=== PATIENT | female | born 2000 | race American Indian/Alaskan Native ===

== ENCOUNTER 2019-01-07 19:59 | Emergency (ER) | payer MEDICAID ==
--- NOTE | 2019-01-07 21:20 | EDM.PDOC ---
ED HPI GENERAL MEDICAL PROBLEM - General Chief Complaint: Gastrointestinal Problem Stated Complaint: THROWING UP Time Seen by Provider: 01/07/19 21:18 Source of Information: Reports: Patient History Limitations: Reports: No Limitations - History of Present Illness INITIAL COMMENTS - FREE TEXT/NARRATIVE: pt started vomiting about 4pm. She vomited violently about 10 times. She has not vomited for the past 25 minutes. Onset: Today, Sudden Duration: Hour(s): Location: Reports: Abdomen Associated Symptoms: Reports: Nausea/Vomiting, Weakness left lower abd Pain Score (Numeric/FACES): 7 - Related Data Allergies Allergy/AdvReac Type Severity Reaction Status Date / Time No Known Allergies Allergy Verified 01/07/19 21:14 Home Meds: Home Meds NK [No Known Home Meds] 01/07/19 [History] ED ROS GENERAL - Review of Systems Review Of Systems: See Below Constitutional: Reports: No Symptoms HEENT: Reports: No Symptoms Respiratory: Reports: No Symptoms Cardiovascular: Reports: No Symptoms Endocrine: Reports: No Symptoms GI/Abdominal: Reports: Abdominal Pain, Nausea, Vomiting, Other (pt has pain in the left lower abdoman. ) : Reports: No Symptoms Musculoskeletal: Reports: No Symptoms Skin: Reports: No Symptoms ED EXAM, GI/ABD - Physical Exam Exam: See Below Text/Narrative:: Pt arrived with pain in her left lower abdoman. She has vomited violently about 10 times prior to arrival. She has irregular periods. Her preg test has been neg at home. Exam Limited By: No Limitations General Appearance: Alert, Mild Distress Ears: Normal TMs Nose: Normal Inspection Throat/Mouth: Normal Inspection Head: Atraumatic Neck: Normal Inspection Respiratory/Chest: No Respiratory Distress Cardiovascular: Regular Rate, Rhythm GI/Abdominal Exam: Soft, Non-Tender (Female) Exam: Deferred Rectal (Female) Exam: Deferred Back Exam: Normal Inspection Extremities: Normal Inspection Neurological: Alert, Oriented, Normal Cognition Psychiatric: Anxious Course - Vital Signs Last Recorded V/S: Last Vital Signs Temp 35.9 C 01/07/19 21:16 Pulse 88 01/07/19 21:16 Resp 16 01/07/19 21:16 BP 152/96 H 01/07/19 21:16 Pulse Ox 97 01/07/19 21:16 - Orders/Labs/Meds Orders: Active Orders 24 hr Category Date Time Status CULTURE URINE [RM] Stat Lab 01/08/19 00:13 Ordered Labs: Laboratory Tests 01/07/19 01/07/19 01/07/19 Range/Units 21:29 21:29 21:41 WBC 12.0 H (4.5-11.0) K/uL RBC 5.02 (3.30-5.50) M/uL Hgb 13.1 (12.0-15.0) g/dL Hct 41.7 (36.0-48.0) % MCV 83 (80-98) fL MCH 26 L (27-31) pg MCHC 31 L (32-36) % Plt Count 281 (150-400) K/uL Neut % (Auto) 68 H (36-66) % Lymph % (Auto) 24 (24-44) % [place] % (Auto) 5 (2-6) % Eos % (Auto) 2 (2-4) % Baso % (Auto) 0 (0-1) % Sodium 141 (140-148) mmol/L Potassium 3.8 (3.6-5.2) mmol/L Chloride 106 (100-108) mmol/L Carbon Dioxide 26 (21-32) mmol/L Anion Gap 9.4 (5.0-14.0) mmol/L BUN 8 (7-18) mg/dL Creatinine 0.8 (0.6-1.0) mg/dL Est Cr Clr Drug Dosing 109.99 mL/min Estimated GFR (MDRD) > 60 (>60) Glucose 93 (74-106) mg/dL Calcium 9.0 (8.5-10.1) mg/dL Total Bilirubin 0.3 (0.2-1.0) mg/dL AST 28 (15-37) U/L ALT 28 (12-78) U/L Alkaline Phosphatase 156 H (46-116) U/L C-Reactive Protein 0.89 H (0.0-0.3) mg/dL Total Protein 7.7 (6.4-8.2) g/dL Albumin 3.6 (3.4-5.0) g/dL Globulin 4.1 H (2.3-3.5) g/dL Albumin/Globulin Ratio 0.9 L (1.2-2.2) Urine Color Urine Appearance Urine pH (4.5-8.0) Ur Specific [place] (1.008-1.030) Urine Protein (NEGATIVE) mg/dL Urine Glucose (UA) (NEGATIVE) mg/dL Urine Ketones (NEGATIVE) mg/dL Urine Occult Blood (NEGATIVE) Urine Nitrite (NEGATIVE) Urine Bilirubin (NEGATIVE) Urine Urobilinogen (NORMAL) mg/dL Ur Leukocyte Esterase (NEGATIVE) Urine RBC (0-5) Urine WBC (0-5) Ur Epithelial Cells Amorphous Sediment Urine Bacteria Urine Mucus Urine HCG, Qual 01/07/19 01/07/19 Range/Units 22:04 22:04 WBC (4.5-11.0) K/uL RBC (3.30-5.50) M/uL Hgb (12.0-15.0) g/dL Hct (36.0-48.0) % MCV (80-98) fL MCH (27-31) pg MCHC (32-36) % Plt Count (150-400) K/uL Neut % (Auto) (36-66) % Lymph % (Auto) (24-44) % [place] % (Auto) (2-6) % Eos % (Auto) (2-4) % Baso % (Auto) (0-1) % Sodium (140-148) mmol/L Potassium (3.6-5.2) mmol/L Chloride (100-108) mmol/L Carbon Dioxide (21-32) mmol/L Anion Gap (5.0-14.0) mmol/L BUN (7-18) mg/dL Creatinine (0.6-1.0) mg/dL Est Cr Clr Drug Dosing mL/min Estimated GFR (MDRD) (>60) Glucose (74-106) mg/dL Calcium (8.5-10.1) mg/dL Total Bilirubin (0.2-1.0) mg/dL AST (15-37) U/L ALT (12-78) U/L Alkaline Phosphatase (46-116) U/L C-Reactive Protein (0.0-0.3) mg/dL Total Protein (6.4-8.2) g/dL Albumin (3.4-5.0) g/dL Globulin (2.3-3.5) g/dL Albumin/Globulin Ratio (1.2-2.2) Urine Color [place] Urine Appearance Cloudy Urine pH 5.0 (4.5-8.0) Ur Specific [place] 1.020 (1.008-1.030) Urine Protein Trace (NEGATIVE) mg/dL Urine Glucose (UA) Normal (NEGATIVE) mg/dL Urine Ketones 15 H (NEGATIVE) mg/dL Urine Occult Blood Negative (NEGATIVE) Urine Nitrite Negative (NEGATIVE) Urine Bilirubin Small (NEGATIVE) Urine Urobilinogen 1 (NORMAL) mg/dL Ur Leukocyte Esterase Small (NEGATIVE) Urine RBC 5-10 H (0-5) Urine WBC 5-10 H (0-5) Ur Epithelial Cells Few Amorphous Sediment Few Urine Bacteria Few Urine Mucus Few Urine HCG, Qual Negative Meds: Medications Discontinued Medications Generic Name Dose Route Start Last Admin Trade Name Freq PRN Reason Stop Dose Admin Ketorolac Tromethamine 60 mg 01/07/19 23:20 01/07/19 23:54 Toradol IM 01/07/19 23:21 Not Given ONETIME ONE Ondansetron HCl 4 mg 01/07/19 21:33 01/07/19 21:56 Zofran Odt PO 01/07/19 21:34 4 mg ONETIME ONE Administration - Re-Assessments/Exams Free Text/Narrative Re-Assessment/Exam: 01/08/19 00:18 Pt had a wbc of 12,00. She stated that her pain was at a 8. She was given zoforan and she has not vomited since arrival. Her cat scan of the abdoman showed no stones present. There is an area in the liver that does need further evaluation. She does have some wbcs but very few bacteria. She has a culture set up. 01/08/19 00:23 Departure - Departure Time of Disposition: 00:24 Disposition: Home, Self-Care 01 Condition: Fair Clinical Impression: Viral illness - Discharge Information Referrals: PCP,None [Primary Care Provider] - Forms: ED Department Discharge Care Plan Goals: clear liquid diet, zoforan 4 mg q6h prn for nausea Pt does need a primary care person to follow her will refer to Dr Marin. -- A follow up Mri of the liver needs to be done. - My Orders Last 24 Hours: My Active Orders 01/08/19 00:13 CULTURE URINE [RM] Stat - Assessment/Plan Last 24 Hours: My Active Orders 01/08/19 00:13 CULTURE URINE [RM] Stat
[2019-01-07] MEDS ORDERED: Ondansetron 4 MG Tab.DIS PO ONE (21:33)
[2019-01-07] MEDS: Ketorolac 60 MG/2 ML SDV IM ONE ×2 (23:50→23:54)
--- NOTE | 2019-01-07 23:56 | CRLCT ---
INDICATION: Left lower abdominal pain TECHNIQUE: CT Abdomen and pelvis without i.v. contrast. Coronal and sagittal reformats were obtained. COMPARISON: None FINDINGS: Lower chest: Unremarkable. Liver: There is a hypodense mass in the left medial segment of the liver measuring 5.7 x 4.5 cm. Spleen: Unremarkable. Pancreas: Unremarkable. Gallbladder: Unremarkable. Kidney: Unremarkable. No kidney or ureteral stones or obstruction seen. Adrenal: Unremarkable. Bowel: Unremarkable. The appendix is normal in appearance and size. Vascular: Unremarkable. Lymph: Unremarkable. Peritoneum: Unremarkable. No pneumoperitoneum is seen. No significant ascites is noted. Pelvis: Unremarkable. Soft tissue: Unremarkable. Bone: Unremarkable for age. IMPRESSION: 1. There is a hypodense mass in the left medial segment of the liver measuring 5.7 x 4.5 cm. This may represent focal nodular hyperplasia or hepatic adenoma if the patient is on oral contraceptives. Assessment with outpatient liver MRI is recommended for confirmation, especially if the patient has a history of chronic liver disease or primary malignancy. Dictated by Per Liu MD @ 01/07/2019 11:52:52 PM Please note that all CT scans at this facility use dose modulation, iterative reconstruction, and/or weight-based dosing when appropriate to reduce radiation dose to as low as reasonably achievable. Dictated by: Per Liu MD @ 01/07/2019 23:53:30 (Electronically Signed)
== END 2019-01-08 00:40 | disposition home or self-care (01) ==
LOC: JP.ED 19:59
DX: B34.9 Viral infection, unspecified (principal)
CPT/HCPCS: 36415; 74176; 80053; 81001; 81025; 85025; 86140; 87086; 99284; A9270; J1885

== ENCOUNTER 2019-01-18 16:04 | Emergency (ER) | payer MEDICAID ==
--- NOTE | 2019-01-18 17:05 | EDM.PDOC ---
ED HPI GENERAL MEDICAL PROBLEM - General Chief Complaint: Abdominal Pain Time Seen by Provider: 01/18/19 16:41 Source of Information: Reports: Patient, Old Records, RN Notes Reviewed History Limitations: Reports: No Limitations - History of Present Illness INITIAL COMMENTS - FREE TEXT/NARRATIVE: 18-year-old female presents emergency department today to review her MRI results , she is been to the emergency department for ongoing abdominal pain initial CT scan workup in the ED showed questionable focal nodular hyperplasia she had an MRI done on 01-16 which then confirms that diagnosis she is here for those results Left Lower Abdomen Pain Score (Numeric/FACES): 7 - Related Data Allergies Allergy/AdvReac Type Severity Reaction Status Date / Time No Known Allergies Allergy Verified 01/18/19 16:31 Home Meds: Home Meds NK [No Known Home Meds] 01/07/19 [History] Past Medical History HEENT History: Reports: Impaired Vision Psychiatric History: Reports: Anxiety, Depression, PTSD, Suicide Attempt Social & Family History - Tobacco Use Smoking Status *Q: Current Every Day Smoker Years of Tobacco use: 1 Packs/Tins Daily: 0.2 Used Tobacco, but Quit: No Second Hand Smoke Exposure: Yes - Caffeine Use Caffeine Use: Reports: Energy Drinks - Alcohol Use Days Per Week of Alcohol Use: 0 - Recreational Drug Use Recreational Drug Use: No ED ROS GENERAL - Review of Systems Review Of Systems: See Below GI/Abdominal: Reports: Abdominal Pain ED EXAM, GI/ABD - Physical Exam Exam: See Below Exam Limited By: No Limitations General Appearance: Alert, WD/WN, No Apparent Distress Respiratory/Chest: No Respiratory Distress Course - Vital Signs Last Recorded V/S: Last Vital Signs Temp 96.8 F 01/18/19 16:38 Pulse 82 01/18/19 16:38 Resp 16 01/18/19 16:38 BP 137/87 01/18/19 16:38 Pulse Ox 97 01/18/19 16:38 Departure - Departure Time of Disposition: 17:05 Disposition: Home, Self-Care 01 Condition: Good 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
== END 2019-01-18 17:10 | disposition home or self-care (01) ==
LOC: JP.ED 16:04
DX: K76.89 Other specified diseases of liver (principal); F17.210 Nicotine dependence, cigarettes, uncomplicated
CPT/HCPCS: 99283

== ENCOUNTER 2019-06-14 21:05 | Emergency (ER) | payer MEDICAID ==
--- NOTE | 2019-06-14 23:13 | EDM.PDOC ---
ED HPI GENERAL MEDICAL PROBLEM - General Chief Complaint: Gastrointestinal Problem Stated Complaint: THROWING UP,STOMACH PAINS Time Seen by Provider: 06/14/19 22:13 Source of Information: Reports: Patient, Family (boyfriend and another friend in room) History Limitations: Reports: No Limitations - History of Present Illness INITIAL COMMENTS - FREE TEXT/NARRATIVE: chief complaint: request test This is a 18 year old female present to ER for test. reports her period is late and vomited once about 2 hours ago. No other complaints or concerns. Onset: Today Onset Date: 06/14/19 Onset Time: 20:00 Duration: Hour(s): (vomiting once this evening.) Severity: Mild Improves with: Reports: None Worsens with: Reports: None Associated Symptoms: Reports: No Other Symptoms - Related Data Allergies Allergy/AdvReac Type Severity Reaction Status Date / Time No Known Allergies Allergy Verified 01/18/19 17:11 Past Medical History HEENT History: Reports: Impaired Vision Psychiatric History: Reports: Anxiety, Depression, PTSD, Suicide Attempt Social & Family History - Family History Family Medical History: Unobtainable - Tobacco Use Smoking Status *Q: Current Every Day Smoker Years of Tobacco use: 5 Packs/Tins Daily: 0.1 Used Tobacco, but Quit: Yes Month/Year Tobacco Last Used: 05/2019 - Caffeine Use Caffeine Use: Reports: Soda Caffeine Use Comment: occasional soda use - Alcohol Use Days Per Week of Alcohol Use: 1 Number of Drinks Per Day: 5 Total Drinks Per Week: 5 - Recreational Drug Use Recreational Drug Use: Yes Recreational Drug Type: Reports: Marijuana/Hashish ED ROS GENERAL - Review of Systems Review Of Systems: See Below Constitutional: Reports: No Symptoms HEENT: Reports: No Symptoms Respiratory: Reports: No Symptoms Cardiovascular: Reports: No Symptoms Endocrine: Reports: No Symptoms GI/Abdominal: Reports: Nausea (reports vomited once this evening. ) : Reports: No Symptoms, Other (last menses May 03, 2019) Musculoskeletal: Reports: No Symptoms Skin: Reports: No Symptoms Neurological: Reports: No Symptoms Psychiatric: Reports: No Symptoms Hematologic/Lymphatic: Reports: No Symptoms ED EXAM, GENERAL - Physical Exam Exam: See Below Exam Limited By: No Limitations General Appearance: Alert, WD/WN, No Apparent Distress Respiratory/Chest: No Respiratory Distress, Lungs Clear, Normal Breath Sounds Cardiovascular: Regular Rate, Rhythm, No Edema, No Murmur GI/Abdominal: Normal Bowel Sounds, Soft, Non-Tender, No Organomegaly, No Distention, No Abnormal Bruit, No Mass Extremities: Normal Inspection, Normal Range of Motion, Non-Tender, No Pedal Edema, Normal Capillary Refill Neurological: Alert, Oriented, Normal Cognition, Normal Gait, Sensory/Motor Deficit Psychiatric: Normal Affect Skin Exam: Warm, Dry, Intact, Normal Color, No Rash Lymphatic: No Adenopathy Course - Vital Signs Last Recorded V/S: Last Vital Signs Temp 35.8 C 06/14/19 21:33 Pulse 93 06/14/19 21:33 Resp 16 06/14/19 21:33 BP 158/98 H 06/14/19 21:33 Pulse Ox 100 06/14/19 21:33 - Orders/Labs/Meds Labs: Laboratory Tests 06/14/19 06/14/19 Range/Units 21:44 22:32 HCG, Qual Negative Urine Color Yellow (YELLOW) Urine Appearance Clear (CLEAR) Urine pH 5.5 (5.0-8.0) Ur Specific [place] 1.030 (1.008-1.030) Urine Protein Negative (NEGATIVE) mg/dL Urine Glucose (UA) Negative (NEGATIVE) mg/dL Urine Ketones Negative (NEGATIVE) mg/dL Urine Occult Blood Negative (NEGATIVE) Urine Nitrite Negative (NEGATIVE) Urine Bilirubin Negative (NEGATIVE) Urine Urobilinogen Normal (0.2-1.0) EU/dL Ur Leukocyte Esterase Negative (NEGATIVE) Urine RBC 0-5 (0-5) Urine WBC 0-5 (0-5) Ur Epithelial Cells Many Amorphous Sediment Few Urine Bacteria Few Urine Mucus Few - Re-Assessments/Exams Free Text/Narrative Re-Assessment/Exam: 06/14/19 23:31 test is negative urine with micro is negative Departure - Departure Time of Disposition: 23:10 Disposition: Home, Self-Care 01 Condition: Good Clinical Impression: Amenorrhea, test negative - Discharge Information *PRESCRIPTION DRUG MONITORING PROGRAM REVIEWED*: Not Applicable *COPY OF PRESCRIPTION DRUG MONITORING REPORT IN PATIENT JOSE: Not Applicable Instructions: Test Information Referrals: Caroline Dobbins PA-C [Primary Care Provider] - Forms: ED Department Discharge Care Plan Goals: test screening negative -negative, repeat in 7 to 10 days if still no period -urine test negative for infection -push fluids, rest -follow up in Primary Care for recheck in 7 to 10 days return to ER, Urgent Care or Clinic if not improved or symptoms worsen. - Problem List & Annotations (1) Amenorrhea SNOMED Code(s): 82002043 Code(s): N91.2 - AMENORRHEA, UNSPECIFIED Status: Acute Priority: High (2) test negative SNOMED Code(s): 161743885 Code(s): Z32.02 - ENCOUNTER FOR TEST, RESULT NEGATIVE Status: Acute Priority: High - Problem List Review Problem List Initiated/Reviewed/Updated: Yes - Assessment/Plan Plan: test screening negative -negative, repeat in 7 to 10 days if still no period -urine test negative for infection -push fluids, rest -follow up in Primary Care for recheck in 7 to 10 days return to ER, Urgent Care or Clinic if not improved or symptoms worsen.
== END 2019-06-14 23:15 | disposition home or self-care (01) ==
LOC: JP.ED 21:05
DX: N91.2 Amenorrhea, unspecified (principal); Z32.02 Encounter for pregnancy test, result negative; F17.210 Nicotine dependence, cigarettes, uncomplicated
CPT/HCPCS: 36415; 81001; 84703; 99283

== ENCOUNTER 2019-08-20 18:40 | Emergency (ER) | payer MEDICAID ==
--- NOTE | 2019-08-20 19:02 | EDM.PDOC ---
ED HPI GENERAL MEDICAL PROBLEM - General Chief Complaint: Lower Extremity Injury/Pain Stated Complaint: left foot pain Time Seen by Provider: 08/20/19 19:03 Source of Information: Reports: Patient History Limitations: Reports: No Limitations - History of Present Illness INITIAL COMMENTS - FREE TEXT/NARRATIVE: pt fell down the stairs about 8 thirty this am. sHE THOUGHT SHE JUAST TWISTED THE FOOT AND SHE WAS UP ON IT ALOT TODAY. sHE NOW HAS SIG PAIN IN THE 5TH METATARSAL AREA. Onset: Today, Sudden, Other ( FELL DOWN THE STAIRS THIS AM. ) Duration: Hour(s): Location: Reports: Lower Extremity, Left Associated Symptoms: Reports: No Other Symptoms - Related Data Allergies Allergy/AdvReac Type Severity Reaction Status Date / Time No Known Allergies Allergy Verified 08/20/19 18:54 Home Meds: Home Meds NK [No Known Home Meds] 06/16/19 [History] Past Medical History HEENT History: Reports: Impaired Vision Psychiatric History: Reports: Anxiety, Depression, PTSD, Suicide Attempt Social & Family History - Family History Family Medical History: Unobtainable - Caffeine Use Caffeine Use: Reports: Soda Caffeine Use Comment: occasional soda use Review of Systems - Review of Systems Review Of Systems: See Below Constitutional: Reports: No Symptoms Eyes: Reports: No Symptoms Ears: Reports: No Symptoms Nose: Reports: No Symptoms Mouth/Throat: Reports: No Symptoms Respiratory: Reports: No Symptoms Cardiovascular: Reports: No Symptoms GI/Abdominal: Reports: No Symptoms Musculoskeletal: Reports: Other (PAIN ON THE LATERAL ASPECT OF THE LEFT FOOT. ) Skin: Reports: No Symptoms Neurological: Reports: No Symptoms ED EXAM, GENERAL - Physical Exam Exam: See Below Free Text/Narrative:: PT ARRIVED WITH PAIN ON THE LATERAL ASPECT OF THE LEFT FOOT. sHE FELL DOWN THE STAIRS ABOUT 8 THIRTY THIS AM. Exam Limited By: No Limitations General Appearance: Alert, Anxious, Moderate Distress Ears: Normal TMs Nose: Normal Inspection Throat/Mouth: Normal Inspection Head: Atraumatic Neck: Normal Inspection Extremities: Other (PT HAS PAIN ON THE LATERAL ASPECT OF THE LEFT FOOT. THIS IS QUITE TENDER TO PALPATE. ) Neurological: Alert, Oriented, Normal Cognition Course - Vital Signs Last Recorded V/S: Last Vital Signs Temp 35.9 C 08/20/19 18:58 Pulse 85 08/20/19 18:58 Resp 16 08/20/19 18:58 BP 151/85 H 08/20/19 18:58 Pulse Ox 97 08/20/19 18:58 - Orders/Labs/Meds Meds: Medications Discontinued Medications Generic Name Dose Route Start Last Admin Trade Name Jose M PRN Reason Stop Dose Admin Ibuprofen 600 mg 08/20/19 19:45 08/20/19 19:50 Motrin PO 08/20/19 19:46 600 mg ONETIME ONE Administration - Re-Assessments/Exams Free Text/Narrative Re-Assessment/Exam: 08/22/19 07:08 pt had a xray of the foot which did not show a fracture. Departure - Departure Time of Disposition: 19:44 Disposition: Home, Self-Care 01 Condition: Fair Clinical Impression: Contusion of foot - Discharge Information Instructions: Foot Contusion, [id number] Referrals: Caroline Dobbins PA-C [Primary Care Provider] - Forms: ED Department Discharge Care Plan Goals: elevate foot, cool pack, no work tomorrow, crutches, motrin 600mg qid.
[2019-08-20] MEDS ORDERED: Ibuprofen 600 MG Tab PO ONE (19:45)
--- NOTE | 2019-08-20 19:46 | CRLCR ---
Indication: Pain Technique: Three views of the left foot Comparison: None available Findings: Bones: No acute fracture or dislocation. A focus of osseous lucency at the tuft of the distal 1st phalanx is of questionable etiology and significance. Joint spaces: Unremarkable. Soft tissues: Unremarkable. Impression: No acute fracture or dislocation. Focal lucency at the tip of the distal 1st phalanx is nonspecific. Correlate for regional tenderness or overlying soft tissue findings. Dictated by Jorge Humphrey MD @ 08/20/2019 7:44:03 PM Dictated by: Jorge Humphrey MD @ 08/20/2019 19:44:11 (Electronically Signed)
== END 2019-08-20 19:59 | disposition home or self-care (01) ==
LOC: JP.ED 18:40
DX: S90.32XA Contusion of left foot, initial encounter (principal); W10.9XXA Fall (on) (from) unspecified stairs and steps, initial encounter; X50.1XXA Overexertion from prolonged static or awkward postures, initial encounter
CPT/HCPCS: 73630-LT; 99283-25; A9270-GY

== ENCOUNTER 2019-09-27 23:39 | Emergency (ER) | payer MEDICAID ==
--- NOTE | 2019-09-28 00:57 | EDM.PDOC ---
ED HPI GENERAL MEDICAL PROBLEM - General Chief Complaint: Upper Extremity Injury/Pain Stated Complaint: RIGHT MIDDLE FINGER INJURY Time Seen by Provider: 09/28/19 00:50 Source of Information: Reports: Patient History Limitations: Reports: No Limitations - History of Present Illness INITIAL COMMENTS - FREE TEXT/NARRATIVE: Patient presents for evaluation of pain and swelling in her right middle finger after she accidentally hit it on the edge of a counter at home. The proximal segment of the right middle finger hit the edge of the counter and she noticed swelling in that same area shortly thereafter. She was concerned that something horrible and happened inside the finger although she did not think that it would be broken. She is able to flex and extend all the fingers of the hand but movement of the middle finger is uncomfortable. Onset: Today Duration: Hour(s): (2 hours prior to arrival.) Severity: Mild Improves with: Reports: None Worsens with: Reports: Movement Context: Reports: Trauma Associated Symptoms: Reports: No Other Symptoms finger Pain Score (Numeric/FACES): 8 - Related Data Allergies Allergy/AdvReac Type Severity Reaction Status Date / Time No Known Allergies Allergy Verified 09/27/19 23:56 Home Meds: Home Meds FLUoxetine [PROzac] 5 mg PO DAILY 09/27/19 [History] Sertraline [Zoloft] 25 mg PO DAILY 09/27/19 [History] Past Medical History HEENT History: Reports: Impaired Vision Psychiatric History: Reports: Anxiety, Depression, PTSD, Suicide Attempt Social & Family History - Family History Family Medical History: Unobtainable - Tobacco Use Smoking Status *Q: Current Every Day Smoker Years of Tobacco use: 1 Packs/Tins Daily: 0.1 - Caffeine Use Caffeine Use: Reports: Soda Caffeine Use Comment: occasional soda use - Alcohol Use Days Per Week of Alcohol Use: 6 Number of Drinks Per Day: 9 Total Drinks Per Week: 54 - Recreational Drug Use Recreational Drug Use: Yes Recreational Drug Type: Reports: Marijuana/Hashish Recreational Drug Use Frequency: Rarely Review of Systems - Review of Systems Review Of Systems: Comprehensive ROS is negative, except as noted in HPI. ED EXAM, GENERAL - Physical Exam Exam: See Below Exam Limited By: No Limitations General Appearance: Alert, Mild Distress Extremities: Limited Range of Motion, Other (On palpation over the dorsal surface of the proximal segment of the right middle finger. There is some soft tissue edema visible and palpable. No crepitus. She can resist flexion and extension of all fingers of the hand with only minor changes in pain.). No: Pallor, Redness Course - Vital Signs Last Recorded V/S: Last Vital Signs Temp 36.7 C 09/27/19 23:55 Pulse 84 09/27/19 23:55 Resp 20 09/27/19 23:55 BP 135/86 09/27/19 23:55 Pulse Ox 99 09/27/19 23:55 - Re-Assessments/Exams Free Text/Narrative Re-Assessment/Exam: 09/28/19 02:16 I discussed with the patient that she has a minor contusion of that finger but x -rays are not indicated tonight. I recommend cold packs 20 minutes off and on to the painful swollen area along with ibuprofen or Tylenol for pain over the next couple days. Recheck in clinic if not improved over the next week. Departure - Departure Time of Disposition: 00:57 Disposition: Home, Self-Care 01 Condition: Good Clinical Impression: Contusion of finger of right hand - Discharge Information *PRESCRIPTION DRUG MONITORING PROGRAM REVIEWED*: Not Applicable *COPY OF PRESCRIPTION DRUG MONITORING REPORT IN PATIENT JOSE: Not Applicable Instructions: Contusion, [id number] Referrals: PCP,None [Primary Care Provider] - Forms: ED Department Discharge Additional Instructions: Cold packs to painful, swollen area 20 minutes off and on. Ibuprofen or Tylenol as needed for pain area symptoms should gradually improve over the next 5 days or so. Sepsis Event Note - Evaluation Sepsis Screening Result: No Definite Risk - Focused Exam Vital Signs: Vital Signs Temp Pulse Resp BP Pulse Ox 09/27/19 23:55 36.7 C 84 20 135/86 99 Date Exam was Performed: 09/28/19 Time Exam was Performed: 02:13
== END 2019-09-28 01:10 | disposition home or self-care (01) ==
LOC: JP.ED 23:39
DX: S60.031A Contusion of right middle finger without damage to nail, initial encounter (principal); F17.210 Nicotine dependence, cigarettes, uncomplicated; F32.9 Major depressive disorder, single episode, unspecified; Z79.899 Other long term (current) drug therapy; W22.03XA Walked into furniture, initial encounter; Y92.009 Unspecified place in unspecified non-institutional (private) residence as the place of occurrence of the external cause
CPT/HCPCS: 99283

== ENCOUNTER 2019-11-14 16:14 | Emergency (ER) | payer MEDICAID | END 2019-11-14 18:16 | disposition left against medical advice (07) | LOC: JP.ED 16:14 | DX: Z53.21 Procedure and treatment not carried out due to patient leaving prior to being seen by health care provider (principal) ==

== ENCOUNTER 2020-07-14 00:13 | Emergency (ER) | payer MEDICAID ==
--- NOTE | 2020-07-14 01:02 | EDM.PDOC ---
ED HPI GENERAL MEDICAL PROBLEM - General Chief Complaint: General Stated Complaint: VOMITING/ILL Time Seen by Provider: 07/14/20 00:48 Source of Information: Reports: Patient, Family, RN Notes Reviewed History Limitations: Reports: No Limitations - History of Present Illness INITIAL COMMENTS - FREE TEXT/NARRATIVE: 20-year-old female presents emergency department a complaint of wanting be checked for diabetes she states she has been having symptoms such as tingling in her feet and tingling in her tongue she also admits to being very anxious. She also has a lesion on her arm she believes is a spider bite it is been there for 3 days she has not had any fevers. 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 Psychiatric History: Reports: Anxiety, Depression, PTSD, Suicide Attempt, Other (See Below) (Cutting behavior) Endocrine/Metabolic History: Reports: Obesity/BMI 30+ - Infectious Disease History Infectious Disease History: Reports: Chicken Pox, MRSA - Past Surgical History Head Surgeries/Procedures: Reports: None HEENT Surgical History: Reports: None Endocrine Surgical History: Reports: None Dermatological Surgical History: Reports: None Social & Family History - Family History Family Medical History: Unobtainable - Tobacco Use Smoking Status *Q: Current Every Day Smoker Years of Tobacco use: 3 Packs/Tins Daily: 0.2 Used Tobacco, but Quit: No Second Hand Smoke Exposure: Yes - Caffeine Use Caffeine Use: Reports: Soda, Tea Caffeine Use Comment: occasional soda use - Alcohol Use Days Per Week of Alcohol Use: 0 - Recreational Drug Use Recreational Drug Use: Yes Drug Use in Last 12 Months: No Recreational Drug Type: Reports: Marijuana/Hashish ED ROS GENERAL - Review of Systems Review Of Systems: See Below Constitutional: Denies: Fever, Chills HEENT: Reports: No Symptoms Respiratory: Reports: No Symptoms Cardiovascular: Reports: No Symptoms GI/Abdominal: Reports: Nausea : Reports: No Symptoms Musculoskeletal: Reports: No Symptoms Skin: Reports: Rash Neurological: Reports: Numbness, Tingling ED EXAM, GENERAL - Physical Exam Exam: See Below Exam Limited By: No Limitations General Appearance: Alert, WD/WN, No Apparent Distress Respiratory/Chest: No Respiratory Distress, Lungs Clear, Normal Breath Sounds, No Accessory Muscle Use, Chest Non-Tender Cardiovascular: Regular Rate, Rhythm, No Murmur GI/Abdominal: Soft, Non-Tender Extremities: Normal Inspection, Normal Range of Motion, No Pedal Edema Psychiatric: Anxious Course - Vital Signs Last Recorded V/S: Last Vital Signs Temp 99.4 F 07/14/20 00:38 Pulse 90 07/14/20 00:38 Resp 16 07/14/20 00:38 BP 147/93 H 07/14/20 00:38 Pulse Ox 99 07/14/20 00:38 - Orders/Labs/Meds Labs: Laboratory Tests 07/14/20 07/14/20 07/14/20 Range/Units 01:03 01:03 01:05 WBC 12.0 H (4.5-11.0) K/uL RBC 4.96 (3.30-5.50) M/uL Hgb 12.5 (12.0-15.0) g/dL Hct 39.9 (36.0-48.0) % MCV 80 (80-98) fL MCH 25 L (27-31) pg MCHC 31 L (32-36) % Plt Count 309 (150-400) K/uL Neut % (Auto) 67 H (36-66) % Lymph % (Auto) 25 (24-44) % [place] % (Auto) 5 (2-6) % Eos % (Auto) 3 (2-4) % Baso % (Auto) 0 (0-1) % Sodium (140-148) mmol/L Potassium (3.6-5.2) mmol/L Chloride (100-108) mmol/L Carbon Dioxide (21-32) mmol/L Anion Gap (5.0-14.0) mmol/L BUN (7-18) mg/dL Creatinine (0.6-1.0) mg/dL Est Cr Clr Drug Dosing mL/min Estimated GFR (MDRD) (>60) Glucose (74-106) mg/dL Hemoglobin A1c (4.5-6.2) % Calcium (8.5-10.1) mg/dL Urine Color Yellow (YELLOW) Urine Appearance Clear (CLEAR) Urine pH 5.5 (5.0-8.0) Ur Specific [place] >= 1.030 (1.008-1.030) Urine Protein Negative (NEGATIVE) mg/dL Urine Glucose (UA) Negative (NEGATIVE) mg/dL Urine Ketones Negative (NEGATIVE) mg/dL Urine Occult Blood Trace-intact H (NEGATIVE) Urine Nitrite Negative (NEGATIVE) Urine Bilirubin Negative (NEGATIVE) Urine Urobilinogen 0.2 (0.2-1.0) EU/dL Ur Leukocyte Esterase Negative (NEGATIVE) Urine RBC 0-5 (0-5) Urine WBC 0-5 (0-5) Ur Epithelial Cells Few Amorphous Sediment Few Urine Bacteria Few Urine Mucus Not seen Urine HCG, Qual Negative 07/14/20 07/14/20 Range/Units 01:05 01:05 WBC (4.5-11.0) K/uL RBC (3.30-5.50) M/uL Hgb (12.0-15.0) g/dL Hct (36.0-48.0) % MCV (80-98) fL MCH (27-31) pg MCHC (32-36) % Plt Count (150-400) K/uL Neut % (Auto) (36-66) % Lymph % (Auto) (24-44) % [place] % (Auto) (2-6) % Eos % (Auto) (2-4) % Baso % (Auto) (0-1) % Sodium 142 (140-148) mmol/L Potassium 3.7 (3.6-5.2) mmol/L Chloride 104 (100-108) mmol/L Carbon Dioxide 27 (21-32) mmol/L Anion Gap 11.4 (5.0-14.0) mmol/L BUN 13 D (7-18) mg/dL Creatinine 0.9 (0.6-1.0) mg/dL Est Cr Clr Drug Dosing 139.24 mL/min Estimated GFR (MDRD) > 60 (>60) Glucose 95 (74-106) mg/dL Hemoglobin A1c 5.5 (4.5-6.2) % Calcium 8.6 (8.5-10.1) mg/dL Urine Color (YELLOW) Urine Appearance (CLEAR) Urine pH (5.0-8.0) Ur Specific [place] (1.008-1.030) Urine Protein (NEGATIVE) mg/dL Urine Glucose (UA) (NEGATIVE) mg/dL Urine Ketones (NEGATIVE) mg/dL Urine Occult Blood (NEGATIVE) Urine Nitrite (NEGATIVE) Urine Bilirubin (NEGATIVE) Urine Urobilinogen (0.2-1.0) EU/dL Ur Leukocyte Esterase (NEGATIVE) Urine RBC (0-5) Urine WBC (0-5) Ur Epithelial Cells Amorphous Sediment Urine Bacteria Urine Mucus Urine HCG, Qual Departure - Departure Time of Disposition: :29 Disposition: Home, Self-Care 01 Condition: Fair Clinical Impression: Cellulitis Qualifiers: Site of cellulitis: extremity Site of cellulitis of extremity: upper extremity Laterality: left Qualified Code(s): L03.114 - Cellulitis of left upper limb - Discharge Information Instructions: Cellulitis, Adult Referrals: PCP,None [Primary Care Provider] - Forms: ED Department Discharge, ED Return to Work/School Form Additional Instructions: Take full course of antibiotics, please followup with your primary care provider in 3-5 days if not better, please call return to the emergency department with worsening of symptoms. Sepsis Event Note (ED) - Evaluation Sepsis Screening Result: No Definite Risk - Focused Exam Vital Signs: Vital Signs Temp Pulse Resp BP Pulse Ox 07/14/20 00:38 99.4 F 90 16 147/93 H 99 - Assessment/Plan Plan: Assessment Acuity = acute Site and laterality = local wound infection Etiology = unknown Manifestations = none Location of injury = Home Lab values = WBC elevated 12.0 consistent with a leukocytosis remainder of CBC unremarkable, BMP within normal limits urinalysis does reveal a specific gravity 1.03 however no glucose no sign of infection beta-hCG was negative and hemoglobin A1c is at 5.5 Plan Elect to treat empirically Keflex 500 mg p.o. twice daily x7 days follow-up primary care in 3 to 5 days if not better This note was dictated using [employer] voice recognition software please call with any questions on syntax or grammar.
[2020-07-14 01:21] LABS: HEMOGLOBIN A1C 5.5 % (4.5-6.2)
== END 2020-07-14 01:44 | disposition home or self-care (01) ==
LOC: JP.ED 00:13
DX: L03.114 Cellulitis of left upper limb (principal); F17.210 Nicotine dependence, cigarettes, uncomplicated; F41.9 Anxiety disorder, unspecified; E66.9 Obesity, unspecified; F32.9 Major depressive disorder, single episode, unspecified; Z79.899 Other long term (current) drug therapy; Z68.31 Body mass index [BMI] 31.0-31.9, adult
CPT/HCPCS: 36415; 80048; 81001; 81025; 83036; 85025; 99283

== ENCOUNTER 2020-07-15 20:40 | Emergency (ER) | payer MEDICAID ==
--- NOTE | 2020-07-15 21:36 | EDM.PDOC ---
ED HPI GENERAL MEDICAL PROBLEM - General Chief Complaint: Skin Complaint Stated Complaint: SWELLING LEFT HIP AREA AFTER TAKING MED Time Seen by Provider: 07/15/20 21:24 Source of Information: Reports: Patient, Family, RN Notes Reviewed History Limitations: Reports: No Limitations - History of Present Illness INITIAL COMMENTS - FREE TEXT/NARRATIVE: 20-year-old female presents emergency department today concerned about a red area on her left flank I had the opportunity to evaluate her couple days prior at which time she wanted screening for diabetes had a local cellulitis on her left arm. She also admits to not taking her sertraline in over a month feels full problems with anxiety problems with sleep difficulty with concentration is feeling guilty. 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 Psychiatric History: Reports: Anxiety, Depression, PTSD, Suicide Attempt, Other (See Below) Endocrine/Metabolic History: Reports: Obesity/BMI 30+ - Infectious Disease History Infectious Disease History: Reports: Chicken Pox, MRSA - Past Surgical History Head Surgeries/Procedures: Reports: None HEENT Surgical History: Reports: None Endocrine Surgical History: Reports: None Dermatological Surgical History: Reports: None Social & Family History - Family History Family Medical History: Unobtainable - Tobacco Use Smoking Status *Q: Current Every Day Smoker Years of Tobacco use: 3 Packs/Tins Daily: 0.2 Used Tobacco, but Quit: No Second Hand Smoke Exposure: Yes - Caffeine Use Caffeine Use: Reports: Soda, Tea Caffeine Use Comment: occasional soda use - Recreational Drug Use Recreational Drug Use: Yes Drug Use in Last 12 Months: No Recreational Drug Type: Reports: Marijuana/Hashish ED ROS GENERAL - Review of Systems Review Of Systems: See Below Constitutional: Reports: Other (Problems with sleep) HEENT: Reports: No Symptoms Respiratory: Reports: No Symptoms Cardiovascular: Reports: No Symptoms Skin: Reports: Rash Psychiatric: Reports: Anxiety, Depression ED EXAM, SKIN/RASH Exam: See Below Text/Narrative:: Examination left flank there is a small folliculitis which can be appreciated area is approximately 1 cm x 2 cm in size Exam Limited By: No Limitations General Appearance: Alert, WD/WN, No Apparent Distress Psychiatric: Anxious, Flat Affect Course - Vital Signs Last Recorded V/S: Last Vital Signs Temp 98.3 F 07/15/20 21:22 Pulse 86 07/15/20 21:22 Resp 16 07/15/20 21:22 BP 136/85 07/15/20 21:22 Pulse Ox 98 07/15/20 21:22 Departure - Departure Time of Disposition: 21:36 Disposition: Home, Self-Care 01 Condition: Fair Clinical Impression: Anxiety - Discharge Information Referrals: Caroline Dobbnis PA-C [Primary Care Provider] - Additional Instructions: Restart your sertraline 1 tablet once a day at 25 mg please fill the prescription tomorrow, please follow-up with your primary care provider as soon as possible for further evaluation Sepsis Event Note (ED) - Evaluation Sepsis Screening Result: No Definite Risk - Focused Exam Vital Signs: Vital Signs Temp Pulse Resp BP Pulse Ox 07/15/20 21:22 98.3 F 86 16 136/85 98 07/15/20 21:09 98.3 F 86 16 136/85 98 - Assessment/Plan Plan: Assessment Acuity = acute Site and laterality = local folliculitis, depression with generalized anxiety disorder Etiology = probable infected hair follicle not taking medications Manifestations = none Location of injury = Home Lab values = none Plan She agreed to restart her sertraline 25 mg once a day she is going to try and reconnect with her primary care provider this week This note was dictated using [employer] voice recognition software please call with any questions on syntax or grammar.
== END 2020-07-15 21:55 | disposition home or self-care (01) ==
LOC: JP.ED 20:40
DX: F41.9 Anxiety disorder, unspecified (principal); L73.9 Follicular disorder, unspecified; F32.9 Major depressive disorder, single episode, unspecified; E66.9 Obesity, unspecified; Z68.38 Body mass index [BMI] 38.0-38.9, adult; F17.210 Nicotine dependence, cigarettes, uncomplicated; Z79.899 Other long term (current) drug therapy
CPT/HCPCS: 99283

== ENCOUNTER 2020-08-11 19:11 | Emergency (ER) | payer MEDICAID ==
[2020-08-11] MEDS ORDERED: Atropine/Diphenoxylate 0.025-2.5 MG Tab PO ONE (21:07)
--- NOTE | 2020-08-11 21:12 | EDM.PDOC ---
ED HPI GENERAL MEDICAL PROBLEM - General Chief Complaint: Gastrointestinal Problem Stated Complaint: VOMITING, ABDOMINAL PAIN Time Seen by Provider: 08/11/20 20:55 Source of Information: Reports: Patient, Old Records, RN History Limitations: Reports: No Limitations - History of Present Illness INITIAL COMMENTS - FREE TEXT/NARRATIVE: 20 yo NA female here with vomiting and diarrhea for a few days. No fever, hematochezia or hematemesis. Sometimes is dizzy with standing. Her male significant other has not caught this illness. No recent hospitalizations or antibiotic therapy. No abdominal pain. Gets nausea mainly if she eats or drinks. Has diarrhea multiple times/day. No self tx. Onset: Gradual Onset Date: 08/07/20 Duration: Day(s):, Constant Location: Reports: Abdomen Quality: Reports: Other (no pain) Severity: Moderate Improves with: Reports: Other (not eating or drinking) Worsens with: Reports: Eating (or drinking) Context: Reports: Other (See HPI) Associated Symptoms: Reports: Loss of Appetite, Nausea/Vomiting. 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 Psychiatric History: Reports: Anxiety, Depression, PTSD, Suicide Attempt Endocrine/Metabolic History: Reports: Obesity/BMI 30+ - Infectious Disease History Infectious Disease History: Reports: Chicken Pox - Past Surgical History Head Surgeries/Procedures: Reports: None HEENT Surgical History: Reports: None Endocrine Surgical History: Reports: None Dermatological Surgical History: Reports: None Social & Family History - Family History Family Medical History: Unobtainable - Tobacco Use Tobacco Use Status *Q: Former Tobacco User Years of Tobacco use: 1 Packs/Tins Daily: 0.5 Used Tobacco, but Quit: Yes Month/Year Tobacco Last Used: 07/02/2020 Second Hand Smoke Exposure: No - Caffeine Use Caffeine Use: Reports: Soda Caffeine Use Comment: occasional soda use - Alcohol Use Days Per Week of Alcohol Use: 7 Number of Drinks Per Day: 8 Total Drinks Per Week: 56 Date of Last Drink: 06/07/20 Time of Last Drink: 20:00 - Recreational Drug Use Recreational Drug Use: No ED ROS GENERAL - Review of Systems Review Of Systems: See Below Constitutional: Reports: Malaise HEENT: Reports: No Symptoms Respiratory: Reports: No Symptoms Cardiovascular: Reports: No Symptoms Endocrine: Reports: No Symptoms GI/Abdominal: Reports: Diarrhea, Nausea, Vomiting. Denies: Abdominal Pain, Black Stool, Bloody Stool, Constipation, Distension, Hematemesis, Hematochezia, Melena : Reports: No Symptoms Musculoskeletal: Reports: No Symptoms Skin: Reports: No Symptoms Neurological: Reports: No Symptoms Psychiatric: Reports: No Symptoms ED EXAM, GI/ABD - Physical Exam Exam: See Below Exam Limited By: No Limitations General Appearance: Alert, WD/WN, No Apparent Distress, Obese Eyes: Bilateral: Normal Appearance (no scleral icterus, no conjunctival pallor) Ears: Normal External Exam, Normal Canal, Hearing Grossly Normal Nose: Normal Inspection, No Blood Throat/Mouth: Normal Inspection, Normal Lips, Normal Oropharynx, Normal Voice, No Airway Compromise Head: Atraumatic, Normocephalic Neck: Normal Inspection Respiratory/Chest: No Respiratory Distress, Lungs Clear, Normal Breath Sounds, No Accessory Muscle Use Cardiovascular: Regular Rate, Rhythm, No Edema, Tachycardia (mildly tachy) GI/Abdominal Exam: Normal Bowel Sounds, Soft, Non-Tender, No Distention. No: Distended Back Exam: Normal Inspection. No: CVA Tenderness (R), CVA Tenderness (L) Extremities: Normal Inspection, Normal Range of Motion, Non-Tender, No Pedal Edema Neurological: Alert, Oriented, CN II-XII Intact, Normal Cognition, No Motor/Sensory Deficits Psychiatric: Normal Affect, Normal Mood Skin Exam: Warm, Dry, Intact, Normal Color, No Rash Course - Vital Signs Last Recorded V/S: Last Vital Signs Temp 36.9 C 08/11/20 20:42 Pulse 105 H 08/11/20 20:42 Resp 16 08/11/20 20:42 BP 124/82 08/11/20 20:42 Pulse Ox 96 08/11/20 20:42 - Orders/Labs/Meds Orders: Active Orders 24 hr Category Date Time Status Lactated Ringers [Ringers, Lactated] 1,000 ml Med 08/11/20 21:15 Active IV ASDIRECTED Medication Orders Lactated Ringer's (Ringers, Lactated) 1,000 mls @ 1,000 mls/hr IV ASDIRECTED KALINA Last Admin: 08/11/20 21:23 Dose: 1,000 mls/hr Documented by: GILLIAN Labs: Laboratory Tests 08/11/20 08/11/20 Range/Units 21:15 21:15 WBC 9.9 (4.5-11.0) K/uL RBC 5.42 (3.30-5.50) M/uL Hgb 13.4 (12.0-15.0) g/dL Hct 43.2 (36.0-48.0) % MCV 80 (80-98) fL MCH 25 L (27-31) pg MCHC 31 L (32-36) % Plt Count 283 (150-400) K/uL Sodium 138 L (140-148) mmol/L Potassium 3.7 (3.6-5.2) mmol/L Chloride 103 (100-108) mmol/L Carbon Dioxide 24 (21-32) mmol/L Anion Gap 14.7 H (5.0-14.0) mmol/L BUN 10 (7-18) mg/dL Creatinine 0.9 (0.6-1.0) mg/dL Est Cr Clr Drug Dosing 96.15 mL/min Estimated GFR (MDRD) > 60 (>60) Glucose 88 (74-106) mg/dL Calcium 9.1 (8.5-10.1) mg/dL Meds: Medications Generic Name Dose Route Start Last Admin Trade Name Freq PRN Reason Stop Dose Admin Lactated Ringer's 1,000 mls @ 1,000 mls/hr 08/11/20 21:15 08/11/20 21:23 Ringers, Lactated IV 1,000 mls/hr ASDIRECTED KALINA Administration Discontinued Medications Generic Name Dose Route Start Last Admin Trade Name Freq PRN Reason Stop Dose Admin Diphenoxylate HCl/Atropine 2 tab 08/11/20 21:07 08/11/20 21:26 Lomotil 0.025-2.5 Mg PO 08/11/20 21:08 2 tab ONETIME ONE Administration Departure - Departure Time of Disposition: 22:20 Disposition: Home, Self-Care 01 Condition: Good Clinical Impression: Viral illness, Nausea vomiting and diarrhea - Discharge Information *PRESCRIPTION DRUG MONITORING PROGRAM REVIEWED*: Not Applicable *COPY OF PRESCRIPTION DRUG MONITORING REPORT IN PATIENT JOSE: Not Applicable Instructions: Viral Gastroenteritis, Adult, [id number] Referrals: Caroline Dobbins PA-C [Primary Care Provider] - Forms: ED Department Discharge Additional Instructions: Take loperamide per package instructions for diarrhea control. Take Zofran as directed per prescription for nausea control. Try a BRAT diet to control your diarrhea: Bananas, Rice, applesauce, soda crackers, chicken or turkey with rice soups, jello, any clear liquid, yogurt. Recheck with your provider later this week. Sepsis Event Note (ED) - Evaluation Sepsis Screening Result: No Definite Risk - Focused Exam Vital Signs: Vital Signs Temp Pulse Resp BP Pulse Ox 08/11/20 20:42 36.9 C 105 H 16 124/82 96 - My Orders Last 24 Hours: My Active Orders 08/11/20 21:15 Lactated Ringers [Ringers, Lactated] 1,000 ml IV ASDIRECTED - Assessment/Plan Last 24 Hours: My Active Orders 08/11/20 21:15 Lactated Ringers [Ringers, Lactated] 1,000 ml IV ASDIRECTED
[2020-08-11] MEDS ORDERED: Lactated Ringers 1,000 ML IV SCH (21:15)
== END 2020-08-11 22:25 | disposition home or self-care (01) ==
LOC: JP.ED 19:11
DX: B34.9 Viral infection, unspecified (principal); R11.2 Nausea with vomiting, unspecified; R19.7 Diarrhea, unspecified; F41.9 Anxiety disorder, unspecified; F32.9 Major depressive disorder, single episode, unspecified; E66.9 Obesity, unspecified; Z87.891 Personal history of nicotine dependence; Z68.41 Body mass index [BMI] 40.0-44.9, adult
CPT/HCPCS: 36415; 80048; 85027; 99284; A9270; J7120

== ENCOUNTER 2020-10-26 04:20 | Emergency (ER) | payer MEDICAID ==
[2020-10-26] MEDS ORDERED: Nitrofurantoin Monohydrate/Macrocrystalline 100 MG Cap PO ONE (05:12)
--- NOTE | 2020-10-26 05:22 | EDM.PDOC ---
ED HPI GENERAL MEDICAL PROBLEM - General Chief Complaint: Genitourinary Problem Stated Complaint: ABD PAIN Time Seen by Provider: 10/26/20 05:05 Source of Information: Reports: Patient, Old Records, RN History Limitations: Reports: No Limitations - History of Present Illness INITIAL COMMENTS - FREE TEXT/NARRATIVE: 20 yo female with L sided abdominal pain progressive since yesterday. No fever or vomiting. Feels like she is having incomplete urination and defecation. Has not discussed with her provider. Not having trouble with eating. No increased pain with coughing. Onset: Gradual Onset Date: 10/25/20 Duration: Day(s): (1), Getting Worse Location: Reports: Abdomen (L lateral) Quality: Reports: Ache Severity: Moderate Improves with: Reports: None Worsens with: Reports: Other (pushing on area) Context: Reports: Other (See HPI) Associated Symptoms: Reports: No Other Symptoms. 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 Psychiatric History: Reports: Anxiety, Depression, PTSD, Suicide Attempt Endocrine/Metabolic History: Reports: Obesity/BMI 30+ - Infectious Disease History Infectious Disease History: Reports: Chicken Pox - Past Surgical History Head Surgeries/Procedures: Reports: None HEENT Surgical History: Reports: None Endocrine Surgical History: Reports: None Dermatological Surgical History: Reports: None Social & Family History - Family History Family Medical History: Unobtainable - Tobacco Use Tobacco Use Status *Q: Never Tobacco User - Caffeine Use Caffeine Use: Reports: Soda Caffeine Use Comment: occasional soda use - Recreational Drug Use Recreational Drug Use: No ED ROS GENERAL - Review of Systems Review Of Systems: See Below Constitutional: Reports: No Symptoms HEENT: Reports: No Symptoms Respiratory: Reports: No Symptoms Cardiovascular: Reports: No Symptoms GI/Abdominal: Reports: Abdominal Pain, Constipation. Denies: Black Stool, Bloody Stool, Diarrhea, Distension, Hematemesis, Hematochezia, Melena, Nausea, Vomiting : Reports: Other (difficulty with emptying bladder). Denies: Dysuria Musculoskeletal: Reports: No Symptoms Skin: Reports: No Symptoms Neurological: Reports: No Symptoms ED EXAM, GI/ABD - Physical Exam Exam: See Below Exam Limited By: No Limitations General Appearance: Alert, WD/WN, No Apparent Distress, Obese Eyes: Bilateral: Normal Appearance Ears: Normal External Exam, Normal Canal, Hearing Grossly Normal Nose: Normal Inspection, No Blood Throat/Mouth: Normal Inspection, Normal Lips, Normal Oropharynx, Normal Voice, No Airway Compromise Head: Atraumatic, Normocephalic Neck: Normal Inspection Respiratory/Chest: No Respiratory Distress, Lungs Clear, Normal Breath Sounds, No Accessory Muscle Use Cardiovascular: Regular Rate, Rhythm, No Edema GI/Abdominal Exam: Normal Bowel Sounds, Soft, No Distention, Tender (L lateral abdomen), Other (obese abdomen with pannus). No: Non-Tender, Distended Back Exam: Normal Inspection. No: CVA Tenderness (R), CVA Tenderness (L) Extremities: Normal Inspection, Normal Range of Motion, Non-Tender, No Pedal Edema Neurological: Alert, Oriented, CN II-XII Intact, Normal Cognition, No Motor/Sensory Deficits Psychiatric: Normal Affect, Normal Mood Skin Exam: Warm, Dry, Intact, Normal Color, No Rash Course - Vital Signs Last Recorded V/S: Last Vital Signs Temp 35.6 C L 10/26/20 04:44 Pulse 85 10/26/20 04:44 Resp 15 10/26/20 04:44 BP 138/87 10/26/20 04:44 Pulse Ox 96 10/26/20 04:44 - Orders/Labs/Meds Orders: Active Orders 24 hr Category Date Time Status Abdomen 2V AP Flat Upright [CR] Stat Exams 10/26/20 05:15 Taken Abdomen Pelvis w Cont [CT] Stat Exams 10/26/20 06:41 Stop Req Labs: Laboratory Tests 10/26/20 10/26/20 10/26/20 Range/Units 04:45 05:36 06:25 WBC 14.3 H (4.5-11.0) K/uL RBC 5.31 (3.30-5.50) M/uL Hgb 13.1 (12.0-15.0) g/dL Hct 42.0 (36.0-48.0) % MCV 79 L (80-98) fL MCH 25 L (27-31) pg MCHC 31 L (32-36) % Plt Count 268 (150-400) K/uL Sodium (140-148) mmol/L Potassium (3.6-5.2) mmol/L Chloride (100-108) mmol/L Carbon Dioxide (21-32) mmol/L Anion Gap (5.0-14.0) mmol/L BUN (7-18) mg/dL Creatinine (0.6-1.0) mg/dL Est Cr Clr Drug Dosing mL/min Estimated GFR (MDRD) (>60) Glucose (74-106) mg/dL Calcium (8.5-10.1) mg/dL C-Reactive Protein (0.0-0.3) mg/dL Urine Color Yellow (YELLOW) Urine Appearance Cloudy A (CLEAR) Urine pH 5.5 (5.0-8.0) Ur Specific [place] 1.025 (1.008-1.030) Urine Protein 100 H (NEGATIVE) mg/dL Urine Glucose (UA) Negative (NEGATIVE) mg/dL Urine Ketones Negative (NEGATIVE) mg/dL Urine Occult Blood Moderate H (NEGATIVE) Urine Nitrite Positive H (NEGATIVE) Urine Bilirubin Negative (NEGATIVE) Urine Urobilinogen 0.2 (0.2-1.0) EU/dL Ur Leukocyte Esterase Small H (NEGATIVE) Urine RBC 0-5 (0-5) Urine WBC 10-20 H (0-5) Ur Epithelial Cells Few Amorphous Sediment Few Urine Bacteria Many Urine Mucus Not seen Urine HCG, Qual Negative 10/26/20 Range/Units 06:25 WBC (4.5-11.0) K/uL RBC (3.30-5.50) M/uL Hgb (12.0-15.0) g/dL Hct (36.0-48.0) % MCV (80-98) fL MCH (27-31) pg MCHC (32-36) % Plt Count (150-400) K/uL Sodium 140 (140-148) mmol/L Potassium 4.6 (3.6-5.2) mmol/L Chloride 105 (100-108) mmol/L Carbon Dioxide 23 (21-32) mmol/L Anion Gap 12.0 (5.0-14.0) mmol/L BUN 16 D (7-18) mg/dL Creatinine 0.9 (0.6-1.0) mg/dL Est Cr Clr Drug Dosing 96.15 mL/min Estimated GFR (MDRD) > 60 (>60) Glucose 92 (74-106) mg/dL Calcium 8.9 (8.5-10.1) mg/dL C-Reactive Protein 2.01 H (0.0-0.3) mg/dL Urine Color (YELLOW) Urine Appearance (CLEAR) Urine pH (5.0-8.0) Ur Specific [place] (1.008-1.030) Urine Protein (NEGATIVE) mg/dL Urine Glucose (UA) (NEGATIVE) mg/dL Urine Ketones (NEGATIVE) mg/dL Urine Occult Blood (NEGATIVE) Urine Nitrite (NEGATIVE) Urine Bilirubin (NEGATIVE) Urine Urobilinogen (0.2-1.0) EU/dL Ur Leukocyte Esterase (NEGATIVE) Urine RBC (0-5) Urine WBC (0-5) Ur Epithelial Cells Amorphous Sediment Urine Bacteria Urine Mucus Urine HCG, Qual Meds: Medications Discontinued Medications Generic Name Dose Route Start Last Admin Trade Name Freq PRN Reason Stop Dose Admin Alprazolam 0.25 mg 10/26/20 06:08 10/26/20 06:18 Xanax PO 10/26/20 06:09 Not Given NOW ONE Bisacodyl 10 mg 10/26/20 05:33 10/26/20 06:19 Dulcolax RECTAL 10/26/20 05:34 Not Given ONETIME ONE Nitrofurantoin Macrocrystals 100 mg 10/26/20 05:12 10/26/20 05:22 Macrobid PO 10/26/20 05:13 100 mg ONETIME ONE Administration Sodium Chloride 10 ml 10/26/20 06:42 Saline Flush FLUSH ASDIRECTED PRN Keep Vein Open - Radiology Interpretation Free Text/Narrative:: Flat/upright abdominal X-rays-neg CT abd/pelvis with IV contrast- - Re-Assessments/Exams Free Text/Narrative Re-Assessment/Exam: 10/26/20 06:44 Is a difficult IV access, Xanax offered and declined as she was quite anxious. Offered a Dulcolax supp to see if this would give her relief, patient declined this. WBC ct/CRP elevated, will get a CT scan. Free Text/Narrative Re-Assessment/Exam: 10/26/20 06:[address] scan, signed out AMA. Departure - Departure Time of Disposition: 06:54 Disposition: Against Medical Advice 07 Condition: Fair Clinical Impression: Left sided abdominal pain - Discharge Information *PRESCRIPTION DRUG MONITORING PROGRAM REVIEWED*: Not Applicable *COPY OF PRESCRIPTION DRUG MONITORING REPORT IN PATIENT JOSE: Not Applicable Referrals: Caroline Dobbins PA-C [Primary Care Provider] - Forms: ED Department Discharge Additional Instructions: Wants to leave and follow up with her primary on Wednesday. Sepsis Event Note (ED) - Evaluation Sepsis Screening Result: No Definite Risk - Focused Exam Vital Signs: Vital Signs Temp Pulse Resp BP Pulse Ox 10/26/20 04:44 35.6 C L 85 15 138/87 96 10/26/20 04:42 35.6 C L 85 15 138/87 96 - My Orders Last 24 Hours: My Active Orders 10/26/20 05:15 Abdomen 2V AP Flat Upright [CR] Stat 10/26/20 06:41 Abdomen Pelvis w Cont [CT] Stat - Assessment/Plan Last 24 Hours: My Active Orders 10/26/20 05:15 Abdomen 2V AP Flat Upright [CR] Stat 10/26/20 06:41 Abdomen Pelvis w Cont [CT] Stat
[2020-10-26] MEDS: Bisacodyl 10 MG Supp RECTAL ONE ×2 (05:41→06:19)
[2020-10-26] MEDS ORDERED: ALPRAZolam 0.25 MG Tab PO ONE (06:08)
[2020-10-26] MEDS ORDERED: Sodium Chloride 0.9% 10 ML Syringe FLUSH PRN (06:42)
--- NOTE | 2020-10-28 09:23 | CR ---
Abdomen 2V AP Flat Upright CLINICAL HISTORY: Left-sided abdominal pain FINDINGS: No free air is identified. Intestinal gas pattern is nonacute. No urinary calcifications are seen. There is a double density in the left upper quadrant region. This is likely extra-abdominal and within the soft tissues. May be a soft tissue mass such as lipoma. This may simply represent a skin fold IMPRESSION: Nonacute intestinal gas pattern A 6 cm density overlying the left upper quadrant appears to be superficial. Clinical correlation is
== END 2020-10-26 06:52 | disposition left against medical advice (07) ==
LOC: JP.ED 04:20
DX: R10.32 Left lower quadrant pain (principal); E66.9 Obesity, unspecified; Z68.41 Body mass index [BMI] 40.0-44.9, adult
CPT/HCPCS: 36415; 74019; 74019-26; 80048; 81001; 81025; 85027; 86140; 99283; 99284-25; A9270-GY

== ENCOUNTER 2020-11-04 16:36 | Emergency (ER) | payer MEDICAID ==
[2020-11-04] MEDS ORDERED: Ketorolac 60 MG/2 ML SDV IM ONE (17:16)
[2020-11-04] MEDS: ALPRAZolam 0.25 MG Tab PO ONE (17:58)
--- NOTE | 2020-11-04 18:04 | EDM.PDOC ---
ED HPI GENERAL MEDICAL PROBLEM - General Chief Complaint: General Stated Complaint: CHEST PAIN, HAVING TROUBLE BREATHING Time Seen by Provider: 11/04/20 17:40 Source of Information: Reports: Patient, Old Records, RN History Limitations: Reports: No Limitations - History of Present Illness INITIAL COMMENTS - FREE TEXT/NARRATIVE: 20 yo female presents with a main complaint of feeling SOB when she is outside or trying to sleep. She thinks she is wheezing when trying to sleep. Sx's x 5 days. Is currently being tx'd for a UTI by her primary care provider Katherine Obando and was told to not take her anxiety med while on the antibiotic due to potential drug interactions. She has a f/u appt with her on this issue next month. In the past couple of days she went to the ER in [place] for her current complaints and had a negative work up. Has not tried to contact her primary care provider before coming to our ER today. No chest pain or LE edema. Onset: Other (days ago) Onset Date: 10/30/20 Duration: Day(s):, Waxing/Waning Location: Reports: Chest Quality: Reports: Other (no pain) Severity: Mild Improves with: Reports: Other (not lying or being outside) Worsens with: Reports: Other (lying down to sleep or going outside) Context: Reports: Other (See HPI) Associated Symptoms: Reports: Shortness of Breath. 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: , 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 Psychiatric History: Reports: Anxiety, Depression, PTSD, Suicide Attempt Endocrine/Metabolic History: Reports: Obesity/BMI 30+ - Infectious Disease History Infectious Disease History: Reports: Chicken Pox - Past Surgical History Head Surgeries/Procedures: Reports: None HEENT Surgical History: Reports: None Endocrine Surgical History: Reports: None Dermatological Surgical History: Reports: None Social & Family History - Family History Family Medical History: Unobtainable - Tobacco Use Tobacco Use Status *Q: Former Tobacco User Years of Tobacco use: 3 Packs/Tins Daily: 0.5 Used Tobacco, but Quit: Yes Month/Year Tobacco Last Used: April2020 Second Hand Smoke Exposure: No - Caffeine Use Caffeine Use: Reports: None Caffeine Use Comment: occasional soda use - Alcohol Use Days Per Week of Alcohol Use: 7 Number of Drinks Per Day: 10 Total Drinks Per Week: 70 Date of Last Drink: 07/03/20 - Recreational Drug Use Recreational Drug Use: Yes Drug Use in Last 12 Months: Yes Recreational Drug Type: Reports: Marijuana/Hashish Recreational Drug Use Frequency: Daily ED ROS GENERAL - Review of Systems Review Of Systems: See Below Constitutional: Reports: No Symptoms HEENT: Reports: No Symptoms Respiratory: Reports: Shortness of Breath, Wheezing (at times at night?). Denies: Pleuritic Chest Pain, Cough, Sputum, Hemoptysis Cardiovascular: Denies: Chest Pain, Dyspnea on Exertion Endocrine: Reports: No Symptoms GI/Abdominal: Reports: No Symptoms : Reports: No Symptoms Musculoskeletal: Reports: No Symptoms Skin: Reports: No Symptoms Neurological: Reports: No Symptoms Psychiatric: Reports: Anxiety (hx of, not on her meds currently) ED EXAM, GENERAL - Physical Exam Exam: See Below Exam Limited By: No Limitations General Appearance: Alert, WD/WN, No Apparent Distress, Obese Eye Exam: Bilateral Eye: Normal Inspection Ears: Normal External Exam, Normal Canal, Hearing Grossly Normal Ear Exam: Bilateral Ear: Auricle Normal, Canal Normal Nose: Normal Inspection, No Blood Throat/Mouth: Normal Inspection, Normal Lips, Normal Oropharynx, Normal Voice, No Airway Compromise Head: Atraumatic, Normocephalic Neck: Normal Inspection Respiratory/Chest: No Respiratory Distress, Lungs Clear, Normal Breath Sounds, No Accessory Muscle Use, Other (pulse ox 98% on Rm Air). No: Wheezing Cardiovascular: Regular Rate, Rhythm, No Edema GI/Abdominal: Normal Bowel Sounds, Soft, Non-Tender, No Distention Back Exam: Normal Inspection. No: CVA Tenderness (R), CVA Tenderness (L) Extremities: Normal Inspection, Normal Range of Motion, Non-Tender, No Pedal Edema Neurological: Alert, Oriented, CN II-XII Intact, Normal Cognition, No Motor/Sensory Deficits Psychiatric: Normal Affect, Normal Mood Skin Exam: Warm, Dry, Intact, Normal Color, No Rash Course - Vital Signs Last Recorded V/S: Last Vital Signs Temp 35.3 C L 11/04/20 17:24 Pulse 83 11/04/20 17:40 Resp 18 11/04/20 17:24 BP 161/97 H 11/04/20 17:40 Pulse Ox 99 11/04/20 17:24 - Orders/Labs/Meds Meds: Medications Discontinued Medications Generic Name Dose Route Start Last Admin Trade Name Freq PRN Reason Stop Dose Admin Alprazolam 0.25 mg 11/04/20 17:53 11/04/20 17:58 Xanax PO 11/04/20 17:54 0.25 mg NOW ONE Administration Ketorolac Tromethamine 60 mg 11/04/20 17:16 Toradol IM 11/04/20 17:17 ONETIME ONE - Re-Assessments/Exams Free Text/Narrative Re-Assessment/Exam: 11/04/20 18:43 doing better after Xanax. Departure - Departure Time of Disposition: 18:43 Disposition: Home, Self-Care 01 Condition: Good Clinical Impression: Anxiety - Discharge Information *PRESCRIPTION DRUG MONITORING PROGRAM REVIEWED*: No *COPY OF PRESCRIPTION DRUG MONITORING REPORT IN PATIENT JOSE: No Referrals: Caroline Dobbins PA-C [Primary Care Provider] - Forms: ED Department Discharge Additional Instructions: Use Alprazolam as needed for your anxiety symptoms. F/U Mignon Obando shelia. Sepsis Event Note (ED) - Evaluation Sepsis Screening Result: No Definite Risk - Focused Exam Vital Signs: Vital Signs Temp Pulse Resp BP Pulse Ox 11/04/20 17:40 83 161/97 H 11/04/20 17:24 35.3 C L 80 18 190/119 H 99 11/04/20 17:07 92 180/112 H 11/04/20 16:49 35.3 C L 80 18 190/119 H 99
== END 2020-11-04 18:53 | disposition home or self-care (01) ==
LOC: JP.ED 16:36
DX: F41.9 Anxiety disorder, unspecified (principal); E66.9 Obesity, unspecified; Z87.891 Personal history of nicotine dependence; Z68.42 Body mass index [BMI] 45.0-49.9, adult; Z79.899 Other long term (current) drug therapy
CPT/HCPCS: 99284; A9270-GY